=== PATIENT | female | born 2000 | race Caucasian/White ===

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

== ENCOUNTER 2020-01-24 14:18 | Emergency (ER) | payer MEDICAID, OTHER ==
[~2020-01-24] VITALS: Ht 167.6 cm; Wt 98.6 kg
[2020-01-24 14:24] VITALS: BP 134/86
[2020-01-24] MEDS ORDERED: CEPH-572 PO (15:20)
[2020-01-24] MEDS ORDERED: ALBU18HF2 INH (15:20)
== END 2020-01-24 15:55 | disposition home or self-care (01) ==
LOC: ER 14:19
DX: J02.0 Streptococcal pharyngitis (principal); Z76.0 Encounter for issue of repeat prescription; Z88.0 Allergy status to penicillin
CPT/HCPCS: 99283

== ENCOUNTER 2020-03-11 08:56 | Emergency (ER) | payer MEDICAID ==
[~2020-03-11] VITALS: Ht 167.6 cm; Wt 98.0 kg
[~2020-03-11 08:56] MED LIST: ALBU18HF2 INH
[2020-03-11 09:00] VITALS: BP 136/82
--- NOTE | 2020-03-11 09:08 | NUR ---
GERI LIM AT BEDSIDE.
[2020-03-11] MEDS ORDERED: azithromycin 250mg tablet PO ONE (09:35)
[2020-03-11] MEDS ORDERED: CefTRIAXone 1000mg IM Kit (w/lidocaine diluent) IM ONE (09:35)
[2020-03-11] MEDS ORDERED: DOXY100T56 PO (09:48)
[2020-03-11 09:58] LABS: URINE HCG NEGATIVE (NEG)
[2020-03-11 10:00] LABS: CLARITY,URINE SLIGHTLY CLOUDY (Clear); COLOR,URINE YELLOW (Yellow); GLUCOSE, URINE NEGATIVE (Neg); KETONES,URINE NEGATIVE (Neg); LEUKOCYTE ESTERASE ,URINE SMALL (Neg); NITRITES, URINE NEGATIVE (Neg); OCCULT BLOOD,URINE LARGE (Neg); PROTEIN,URINE NEGATIVE (Neg); UROBILINOGEN,URINE 0.2 E.U/dL (0.2-1.0)
[2020-03-11 10:04] LABS: UA COLLECTION TYPE CLN CATCH MIDSTREAM
[2020-03-11 10:06] LABS: BACTERIA,URINE FEW /HPF (Neg); MUCUS STRANDS FEW /LPF (Neg); SQUAMOUS EPITHELIAL CELL,UR MANY /LPF (FEW)
== END 2020-03-11 10:20 | disposition home or self-care (01) ==
LOC: ER 08:56
DX: N89.8 Other specified noninflammatory disorders of vagina (principal); R10.2 Pelvic and perineal pain; L98.8 Other specified disorders of the skin and subcutaneous tissue; Z72.51 High risk heterosexual behavior; Z88.0 Allergy status to penicillin
CPT/HCPCS: 36415; 81001; 81025; 87491; 87591; 96372; 99283; J0696

== ENCOUNTER 2020-03-16 13:05 | Emergency (ER) | payer MEDICAID ==
[~2020-03-16] VITALS: Ht 167.6 cm; Wt 0.9 kg
[~2020-03-16 13:05] MED LIST changes: +DOXY100T56 PO
[2020-03-16 13:19] VITALS: BP 134/74
[2020-03-16] MEDS ORDERED: azithromycin 250mg tablet PO ONE (15:25)
[2020-03-16] MEDS ORDERED: CefTRIAXone 250MG IM Kit w/LIDOcaine IM ONE (15:25)
[2020-03-16] MEDS ORDERED: ACYC-202 PO (15:31)
[2020-03-16] MEDS ORDERED: DOXY100C77 PO (15:31)
[2020-03-18 07:13] LABS: RPR Non Reactive (Non Reactive)
== END 2020-03-16 16:13 | disposition home or self-care (01) ==
LOC: ER 13:06
DX: B00.9 Herpesviral infection, unspecified (principal); N89.8 Other specified noninflammatory disorders of vagina; Z88.0 Allergy status to penicillin; Z79.899 Other long term (current) drug therapy
CPT/HCPCS: 36415; 86592; 87491; 99284

== ENCOUNTER 2020-03-17 22:41 | Emergency (ER) | payer MEDICAID ==
[~2020-03-17] VITALS: Ht 167.6 cm; Wt 100.0 kg
[~2020-03-17 22:41] MED LIST changes: +ACYC-202 PO; +DOXY100C77 PO
[2020-03-17 23:01] VITALS: BP 122/76
[2020-03-18] MEDS ORDERED: PRED10TA23 PO (00:40)
[2020-03-18] MEDS ORDERED: HYDR28CR14 TOP (00:40)
== END 2020-03-18 00:49 | disposition home or self-care (01) ==
LOC: ER 22:42
DX: L23.7 Allergic contact dermatitis due to plants, except food (principal); Z88.0 Allergy status to penicillin; Z79.899 Other long term (current) drug therapy
CPT/HCPCS: 99283

== ENCOUNTER 2020-03-21 19:55 | Emergency (ER) | payer MEDICAID ==
[~2020-03-21] VITALS: Ht 167.6 cm; Wt 99.0 kg
[~2020-03-21 19:55] MED LIST changes: -DOXY100T56 PO; +HYDR28CR14 TOP; +PRED10TA23 PO
[2020-03-21 19:58] VITALS: BP 152/90
[2020-03-21] MEDS ORDERED: DIPH25CA83 PO (20:52)
[2020-03-21] MEDS ORDERED: KEN0.1O TP (20:52)
[2020-03-21] MEDS ORDERED: FAMO-128 PO (20:52)
== END 2020-03-21 21:12 | disposition home or self-care (01) ==
LOC: ER 19:56
DX: L56.8 Other specified acute skin changes due to ultraviolet radiation (principal); Z88.0 Allergy status to penicillin; Z79.899 Other long term (current) drug therapy
CPT/HCPCS: 99284

== ENCOUNTER 2020-05-09 06:56 | Emergency (ER) | payer MEDICAID ==
[~2020-05-09] VITALS: Ht 167.6 cm; Wt 97.0 kg
[~2020-05-09 06:56] MED LIST changes: -ACYC-202 PO; +DIPH25CA83 PO; -DOXY100C77 PO; +FAMO-128 PO; -PRED10TA23 PO
[2020-05-09 07:57] VITALS: BP 135/77
== END 2020-05-09 07:58 | disposition home or self-care (01) ==
LOC: ER 06:56
DX: J02.0 Streptococcal pharyngitis (principal); Z88.0 Allergy status to penicillin; Z79.899 Other long term (current) drug therapy
CPT/HCPCS: 87081; 87880; 99283

== ENCOUNTER 2020-07-05 20:52 | Emergency (ER) | payer MEDICAID ==
[~2020-07-05] VITALS: Ht 167.6 cm; Wt 100.0 kg
[2020-07-05] MEDS ORDERED: AZIT250T81 PO (21:42)
[2020-07-05 21:49] VITALS: BP 122/69
== END 2020-07-05 21:50 | disposition home or self-care (01) ==
LOC: ER 20:52
DX: J03.80 Acute tonsillitis due to other specified organisms (principal); Z88.1 Allergy status to other antibiotic agents; Z79.2 Long term (current) use of antibiotics; Z79.899 Other long term (current) drug therapy
CPT/HCPCS: 99283

== ENCOUNTER 2020-10-24 01:08 | Emergency (ER) | payer MEDICAID ==
[~2020-10-24] VITALS: Ht 167.6 cm; Wt 83.7 kg
[2020-10-24 01:18] VITALS: BP 122/77
[2020-10-24] MEDS ORDERED: PRED20TA PO (01:22)
[2020-10-24] MEDS ORDERED: dexamethasone 4mg tablet PO ONE (01:25)
== END 2020-10-24 01:50 | disposition home or self-care (01) ==
LOC: ER 01:09
DX: J02.9 Acute pharyngitis, unspecified (principal); Z88.0 Allergy status to penicillin; Z88.1 Allergy status to other antibiotic agents; Z79.899 Other long term (current) drug therapy
CPT/HCPCS: 99283

== ENCOUNTER 2021-02-24 08:21 | Emergency (ER) | payer MEDICAID ==
[~2021-02-24] VITALS: Ht 167.6 cm; Wt 90.9 kg
[2021-02-24 08:26] VITALS: BP 124/77
[2021-02-24] MEDS ORDERED: ipratropium/albuterol 3ml nebule NEB ONE (09:20)
[2021-02-24] MEDS ORDERED: cetirizine 10mg tablet PO SCH (09:20)
[2021-02-24] MEDS ORDERED: ALBU18HF2 INH (09:22)
[2021-02-24] MEDS ORDERED: INHA1INH2 INH (09:22)
== END 2021-02-24 09:46 | disposition home or self-care (01) ==
LOC: ER 08:22
DX: J98.01 Acute bronchospasm (principal); Z72.89 Other problems related to lifestyle; Z88.0 Allergy status to penicillin; Z88.1 Allergy status to other antibiotic agents; Z79.899 Other long term (current) drug therapy
CPT/HCPCS: 94640; 94760; 99283

== ENCOUNTER 2021-09-02 20:47 | Emergency (ER) | payer MEDICAID ==
[~2021-09-02] VITALS: Ht 167.6 cm; Wt 104.5 kg
[~2021-09-02 20:47] MED LIST changes: +INHA1INH2 INH
[2021-09-02 20:58] VITALS: BP 137/97
== END 2021-09-02 23:57 | disposition home or self-care (01) ==
LOC: ER 20:47
DX: B34.9 Viral infection, unspecified (principal); Z20.822 Contact with and (suspected) exposure to COVID-19; J45.909 Unspecified asthma, uncomplicated; Z88.0 Allergy status to penicillin; Z79.899 Other long term (current) drug therapy; Z88.1 Allergy status to other antibiotic agents
CPT/HCPCS: 87081; 87635; 87880; 99283; C9803

== ENCOUNTER 2022-01-09 21:49 | Emergency (ER) | payer MEDICAID ==
[~2022-01-09] VITALS: Ht 167.6 cm; Wt 102.3 kg
--- NOTE | 2022-01-09 22:34 | NUR ---
Pt presents to the ed with c/o flu like symptoms for the past three days; states she's been taking tylenol without relief. denies exposure to others with covid.Pt denies other related concerns.
[2022-01-09] MEDS ORDERED: normal saline 1000ML IV soln IVB ONE (22:35)
[2022-01-09 22:54] LABS: BASOPHILS % (AUTO) 0.2 % (0-1); EOSINOPHILS % (AUTO) 0.2 % (0-6); HEMATOCRIT 37.8 % (35.0-45.0); HEMOGLOBIN 12.5 g/dl (12.0-16.0); LYMPHOCYTES # (AUTO) 1.4 X10'3 (1.1-4.8); LYMPHOCYTES % (AUTO) 11.5 % (21-51); MEAN CORPUSCULAR HEMOGLOBIN 24.9 PG (27.0-31.0); MEAN CORPUSCULAR HGB CONC 33.1 g/dL (33.0-36.5); MEAN CORPUSCULAR VOLUME 75.5 FL (78-98); MONOCYTES # (AUTO) 0.9 X10'3 (0-0.9); MONOCYTES % (AUTO) 7.5 % (2-12); NEUTROPHILS # (AUTO) 9.6 X10'3 (1.8-7.7); NEUTROPHILS % (AUTO) 80.6 % (42-75); PLATELET COUNT 319 X10'3 (140-440); RED BLOOD COUNT 5.01 X10'6 (4.20-5.60); RED CELL DISTRIBUTION WIDTH 15.2 % (11.5-14.5); WHITE BLOOD COUNT 11.9 X10'3 (4.5-11.0)
[2022-01-09 23:08] LABS: ANION GAP 14 (8-16); BLOOD UREA NITROGEN 6 MG/DL (7-18); CHLORIDE 103 MMOL/L (99-107); CREATININE 0.64 MG/DL (0.40-0.90); GLUCOSE 121 MG/DL (70-104); SODIUM 140 MMOL/L (135-145); TOTAL CARBON DIOXIDE 22.7 MMOL/L (24-32)
[2022-01-09 23:09] LABS: ALANINE AMINOTRANSFERASE 14 U/L (12-78); ALBUMIN 3.6 G/DL (3.4-5.0); ALBUMIN/GLOBULIN RATIO 0.8 (1.1-1.5); ALKALINE PHOSPHATASE 86 IU/L (46-116); ASPARTATE AMINO TRANSFERASE 11 U/L (10-37); BILIRUBIN,TOTAL 0.3 MG/DL (0.1-1.0); BUN/CREATININE RATIO 9.4 (6.6-38.0); CALCIUM 8.9 MG/DL (8.5-10.1); TOTAL PROTEIN 8.3 G/DL (6.4-8.2); eGFR > 90 ML/MIN
[2022-01-09 23:10] LABS: POTASSIUM 3.7 MMOL/L (3.5-5.1)
[2022-01-09 23:41] LABS: MONOTEST NEGATIVE (Neg)
[2022-01-09] MEDS ORDERED: acetaminophen 325mg tablet PO ONE (23:55)
[2022-01-10] MEDS ORDERED: AZIT500T9 PO (00:09)
[2022-01-10] MEDS ORDERED: predniSONE 20 mg tablet PO ONE (00:10)
[2022-01-10] MEDS ORDERED: azithromycin 250mg tablet PO ONE (00:20)
[2022-01-10 00:42] VITALS: BP 128/76
== END 2022-01-10 00:46 | disposition home or self-care (01) ==
LOC: ER 21:51
DX: J02.0 Streptococcal pharyngitis (principal); J45.909 Unspecified asthma, uncomplicated; Z88.0 Allergy status to penicillin; Z88.1 Allergy status to other antibiotic agents; Z20.822 Contact with and (suspected) exposure to COVID-19
CPT/HCPCS: 36415; 71045; 80053; 85025; 86308; 87635; 87880; 99284; C9803; J7030; J7512; 96360

== ENCOUNTER 2023-08-18 22:24 | Emergency (ER) | payer MEDICAID ==
[~2023-08-18] VITALS: Ht 167.6 cm; Wt 111.4 kg
[~2023-08-18 22:24] MED LIST changes: +AZIT500T9 PO
[2023-08-18 23:15] LABS: MEAN CORPUSCULAR VOLUME 77.9 FL (78-98); PLATELET COUNT 369 X10'3 (140-440)
[2023-08-18 23:16] LABS: BASOPHILS % (AUTO) 0.1 % (0-1); EOSINOPHILS # (AUTO) 0.1 X10'3 (0-0.9); EOSINOPHILS % (AUTO) 1.4 % (0-6); HEMATOCRIT 38.7 % (35.0-45.0); HEMOGLOBIN 12.3 g/dl (12.0-16.0); LYMPHOCYTES # (AUTO) 1.9 X10'3 (1.1-4.8); LYMPHOCYTES % (AUTO) 23.5 % (21-51); MEAN CORPUSCULAR HEMOGLOBIN 24.9 PG (27.0-31.0); MEAN CORPUSCULAR HGB CONC 31.9 g/dL (33.0-36.5); MONOCYTES # (AUTO) 0.7 X10'3 (0-0.9); MONOCYTES % (AUTO) 8.2 % (2-12); NEUTROPHILS # (AUTO) 5.5 X10'3 (1.8-7.7); NEUTROPHILS % (AUTO) 66.8 % (42-75); RED BLOOD COUNT 4.97 X10'6 (4.20-5.60); RED CELL DISTRIBUTION WIDTH 15.8 % (11.5-14.5); WHITE BLOOD COUNT 8.3 X10'3 (4.5-11.0)
[2023-08-18 23:28] LABS: ALANINE AMINOTRANSFERASE 45 U/L (12-78); ALBUMIN 3.4 G/DL (3.4-5.0); ALBUMIN/GLOBULIN RATIO 0.8 (1.1-1.5); ALKALINE PHOSPHATASE 105 IU/L (46-116); ANION GAP 8 (8-16); ASPARTATE AMINO TRANSFERASE 16 U/L (10-37); BILIRUBIN,TOTAL 0.3 MG/DL (0.1-1.0); BLOOD UREA NITROGEN 6 MG/DL (7-18); BUN/CREATININE RATIO 8.7 (10.0-20.0); CALCIUM 8.9 MG/DL (8.5-10.1); CHLORIDE 103 MMOL/L (99-107); CREATININE 0.69 MG/DL (0.40-0.90); GLUCOSE 148 MG/DL (70-104); POTASSIUM 3.6 MMOL/L (3.5-5.1); SODIUM 138 MMOL/L (135-145); TOTAL CARBON DIOXIDE 26.9 MMOL/L (24-32); TOTAL PROTEIN 7.7 G/DL (6.4-8.2); eCRCL 120 ML/MIN; eGFR > 90 ML/MIN
--- NOTE | 2023-08-18 23:32 | NUR ---
THIS RN AGREES W REMY'S ASSESSMENTS.
[2023-08-18 23:36] LABS: PRO BRAIN NATRIURETIC PEPTIDE 141 PG/ML (0-125)
[2023-08-19] MEDS ORDERED: FAMO-128 PO (01:10)
[2023-08-19] MEDS ORDERED: famotidine 20mg tablet PO ONE (01:10)
[2023-08-19 01:19] VITALS: BP 117/76; PULSE 92; RESP 16; TEMP 98; O2SAT 100
== END 2023-08-19 01:20 | disposition home or self-care (01) ==
LOC: ER 22:26
DX: R06.02 Shortness of breath (principal); R07.9 Chest pain, unspecified; J45.909 Unspecified asthma, uncomplicated; Z88.0 Allergy status to penicillin; Z88.1 Allergy status to other antibiotic agents; Z79.899 Other long term (current) drug therapy
CPT/HCPCS: 36415; 71045; 80053; 83880; 84484; 85025; 93005; 99285

== ENCOUNTER 2024-01-06 12:27 | Emergency (ER) | payer MEDICAID ==
[~2024-01-06] VITALS: Ht 167.6 cm; Wt 108.1 kg
[2024-01-06] MEDS ORDERED: ketorolac trometh inj. 60 MG/2 ML VIAL IM ONE (13:30)
[2024-01-06 13:53] LABS: STREP A SCREEN POSITIVE (Neg)
[2024-01-06] MEDS ORDERED: CLIN-233 PO (14:07)
[2024-01-06] MEDS ORDERED: LIDO15SO9 PO (14:07)
[2024-01-06] MEDS: ketorolac tromethamine 15mg/ml inj. IM ONE (14:38)
[2024-01-06] MEDS: dexamethasone sod phosphate 10mg/ml inj IM STA (14:38)
[2024-01-06 14:47] VITALS: BP 112/73; PULSE 72; RESP 18; TEMP 98.3; O2SAT 100
== END 2024-01-06 14:51 | disposition home or self-care (01) ==
LOC: ER 12:27
DX: J02.0 Streptococcal pharyngitis (principal); J45.909 Unspecified asthma, uncomplicated; Z88.0 Allergy status to penicillin; Z88.1 Allergy status to other antibiotic agents; Z79.2 Long term (current) use of antibiotics; Z79.899 Other long term (current) drug therapy
CPT/HCPCS: 87880; 96372; 99284; J1100; J1885

== ENCOUNTER 2024-03-08 10:57 | Emergency (ER) | payer MEDICAID ==
[~2024-03-08] VITALS: Ht 167.6 cm; Wt 107.7 kg
[~2024-03-08 10:57] MED LIST changes: +LIDO15SO9 PO
[2024-03-08 11:13] VITALS: BP 131/79; PULSE 78; RESP 16; TEMP 98; O2SAT 98
== END 2024-03-08 16:53 | disposition left against medical advice (07) ==
LOC: ER 10:57
DX: R21 Rash and other nonspecific skin eruption (principal); Z53.21 Procedure and treatment not carried out due to patient leaving prior to being seen by health care provider

== ENCOUNTER → 2024-03-26 | Outpatient (CLI) | payer MEDICAID ==
[~2024-03-26] VITALS: Ht 198.1 cm; Wt 108.0 kg
[2024-03-26 07:52] VITALS: PULSE 91; RESP 18; O2SAT 97
[2024-03-26] MEDS: albuterol 2.5 MG/3 ML nebule NEB PRN (08:26)
== END | disposition home or self-care (01) ==
LOC: RT 07:21
PROVIDERS: ATTEND Physician Assistant
DX: J45.20 Mild intermittent asthma, uncomplicated (principal)
CPT/HCPCS: 94060; 94760

== ENCOUNTER 2024-05-03 04:43 | Emergency (ER) | payer MEDICAID ==
[~2024-05-03] VITALS: Ht 167.6 cm; Wt 104.1 kg
[2024-05-03 04:52] VITALS: BP 122/82; PULSE 84; RESP 16; TEMP 98.7; O2SAT 98
[2024-05-03] MEDS ORDERED: AZIT-164 PO (05:30)
[2024-05-03] MEDS: azithromycin 250mg tablet PO ONE (05:35)
== END 2024-05-03 05:43 | disposition home or self-care (01) ==
LOC: ER 04:43
DX: H66.91 Otitis media, unspecified, right ear (principal); J45.909 Unspecified asthma, uncomplicated; Z72.89 Other problems related to lifestyle; Z79.899 Other long term (current) drug therapy; Z88.1 Allergy status to other antibiotic agents; Z88.0 Allergy status to penicillin
CPT/HCPCS: 99283

== ENCOUNTER → 2024-07-16 | Emergency (ER) | payer MEDICAID ==
[~2024-07-16] VITALS: Ht 172.7 cm; Wt 102.3 kg
[~2024-07-16] MED LIST changes: +CLIN75SO7 PO
[2024-07-16 04:56] VITALS: BP 117/75; PULSE 78; RESP 18; TEMP 97.8; O2SAT 97
== END | disposition home or self-care (01) ==
LOC: ER 04:31
DX: L73.8 Other specified follicular disorders (principal); J45.909 Unspecified asthma, uncomplicated; Z88.0 Allergy status to penicillin; Z88.1 Allergy status to other antibiotic agents; Z79.899 Other long term (current) drug therapy; Z79.2 Long term (current) use of antibiotics; Z79.51 Long term (current) use of inhaled steroids; Z72.89 Other problems related to lifestyle
CPT/HCPCS: 99283

== ENCOUNTER 2024-08-17 05:28 | Emergency (ER) | payer MEDICAID ==
[~2024-08-17] VITALS: Ht 167.6 cm; Wt 102.3 kg
[2024-08-17 05:31] VITALS: TEMP 98.8
[2024-08-17] MEDS ORDERED: OMEP40CA21 PO (06:18)
[2024-08-17 06:41] VITALS: BP 117/62; PULSE 55; O2SAT 98
[2024-08-17 06:42] VITALS: RESP 18
== END 2024-08-17 07:11 | disposition home or self-care (01) ==
LOC: ER 05:29
DX: R06.00 Dyspnea, unspecified (principal); R07.89 Other chest pain; J45.909 Unspecified asthma, uncomplicated; Z88.0 Allergy status to penicillin; Z88.1 Allergy status to other antibiotic agents; Z79.899 Other long term (current) drug therapy; Z79.2 Long term (current) use of antibiotics
CPT/HCPCS: 93005; 99283

== ENCOUNTER 2024-09-19 04:07 | Emergency (ER) | payer MEDICAID ==
[~2024-09-19] VITALS: Ht 167.6 cm; Wt 105.2 kg
[2024-09-19] MEDS: oxyCODONE IR 5mg (immed. release) tablet PO ONE (05:01)
[2024-09-19] MEDS: HYDROcodone/acetaminophen 5mg/325mg tablet PO ONE (09:04)
[2024-09-19 09:13] VITALS: BP 121/63; PULSE 66; RESP 16; TEMP 98; O2SAT 98
== END 2024-09-19 09:14 | disposition home or self-care (01) ==
LOC: ER 04:07
DX: O03.9 Complete or unspecified spontaneous abortion without complication (principal); O99.511 Diseases of the respiratory system complicating pregnancy, first trimester; J45.909 Unspecified asthma, uncomplicated; Z3A.01 Less than 8 weeks gestation of pregnancy; Z88.0 Allergy status to penicillin; Z88.1 Allergy status to other antibiotic agents; Z88.8 Allergy status to other drugs, medicaments and biological substances
CPT/HCPCS: 36415; 76801; 84702; 86900; 86901; 99284

== ENCOUNTER 2024-10-19 18:22 | Emergency (ER) | payer MEDICAID ==
[~2024-10-19] VITALS: Ht 167.6 cm; Wt 101.4 kg
[2024-10-19 18:28] VITALS: TEMP 100.2
[2024-10-19 19:24] LABS: BASOPHILS % (AUTO) 0.2 % (0-1); EOSINOPHILS % (AUTO) 0.2 % (0-6); HEMATOCRIT 38.3 % (35.0-45.0); HEMOGLOBIN 11.9 g/dl (12.0-16.0); LYMPHOCYTES # (AUTO) 0.8 X10'3 (1.1-4.8); LYMPHOCYTES % (AUTO) 8.8 % (21-51); MEAN CORPUSCULAR HEMOGLOBIN 25.2 PG (27.0-31.0); MEAN CORPUSCULAR VOLUME 81.1 FL (78-98); MEAN PLATELET VOLUME 7.9 FL (7.4-10.4); MONOCYTES # (AUTO) 0.6 X10'3 (0-0.9); MONOCYTES % (AUTO) 7.3 % (2-12); NEUTROPHILS # (AUTO) 7.4 X10'3 (1.8-7.7); NEUTROPHILS % (AUTO) 83.5 % (42-75); PLATELET COUNT 367 X10'3 (140-440); RED BLOOD COUNT 4.72 X10'6 (4.20-5.60); RED CELL DISTRIBUTION WIDTH 15.2 % (11.5-14.5); WHITE BLOOD COUNT 8.9 X10'3 (4.5-11.0)
[2024-10-19] MEDS ORDERED: gentamicin inj 400 MG in normal saline 100ml IV soln 100 ML IV STA (19:24)
[2024-10-19] MEDS: acetaminophen 325mg tablet PO ONE (19:42)
[2024-10-19] MEDS: normal saline 1000ml 1,000 ML IV ONE (19:42)
[2024-10-19] MEDS: CefTRIAXone/D5W-Rocephin 1gm 50 ML IV ONE (19:42)
[2024-10-19] MEDS: clindamycin-Cleocin 900mg/D5W 50 ML IV ONE (19:43)
[2024-10-19 19:48] LABS: ALANINE AMINOTRANSFERASE 17 U/L (12-78); ALBUMIN 3.7 G/DL (3.4-5.0); ALBUMIN/GLOBULIN RATIO 0.8 (1.1-1.5); ALKALINE PHOSPHATASE 79 IU/L (46-116); ANION GAP 8 (8-16); ASPARTATE AMINO TRANSFERASE 6 U/L (10-37); BILIRUBIN,TOTAL 0.4 MG/DL (0.1-1.0); BLOOD UREA NITROGEN 7 MG/DL (7-18); BUN/CREATININE RATIO 8.5 (10.0-20.0); CALCIUM 9.1 MG/DL (8.5-10.1); CHLORIDE 105 MMOL/L (99-107); CREATININE 0.82 MG/DL (0.40-0.90); GLUCOSE 99 MG/DL (70-104); MAGNESIUM 2.1 MG/DL (1.5-2.4); POTASSIUM 3.9 MMOL/L (3.5-5.1); SODIUM 139 MMOL/L (135-145); TOTAL CARBON DIOXIDE 25.6 MMOL/L (24-32); TOTAL PROTEIN 8.1 G/DL (6.4-8.2); eCRCL 99 ML/MIN; eGFR > 90 ML/MIN
[2024-10-19 19:55] LABS: BETA HCG,QUANTITATIVE 5 mIU/ml
[2024-10-19] MEDS: NORMAL SALINE IV STA (20:10)
[2024-10-19] MEDS: GENTAMICIN IV STA (20:10)
[2024-10-19 21:09] LABS: BILIRUBIN,URINE NEGATIVE (Neg); CLARITY,URINE CLEAR (Clear); COLOR,URINE YELLOW (Yellow); GLUCOSE, URINE NEGATIVE (Neg); KETONES,URINE NEGATIVE (Neg); LEUKOCYTE ESTERASE ,URINE NEGATIVE (Neg); NITRITES, URINE NEGATIVE (Neg); OCCULT BLOOD,URINE LARGE (Neg); PROTEIN,URINE NEGATIVE (Neg); UROBILINOGEN,URINE 0.2 E.U/dL (0.2-1.0)
[2024-10-19 21:10] LABS: URINE HCG NEGATIVE (NEG)
[2024-10-19 21:14] LABS: UA COLLECTION TYPE CLN CATCH MIDSTREAM
[2024-10-19 21:15] LABS: BACTERIA,URINE FEW /HPF (Neg); RBC,URINE 50-100 /HPF (0-2); SQUAMOUS EPITHELIAL CELL,UR FEW /LPF (FEW); WBC,URINE 0-4 /HPF (0-4)
[2024-10-20 01:00] VITALS: BP 116/74; PULSE 71; RESP 18; O2SAT 98
== END 2024-10-20 01:04 | disposition hospice, inpatient (51) ==
LOC: ER 18:24
DX: O04.6 Delayed or excessive hemorrhage following (induced) termination of pregnancy (principal); R50.9 Fever, unspecified; J45.909 Unspecified asthma, uncomplicated; Z88.0 Allergy status to penicillin; Z88.1 Allergy status to other antibiotic agents; Z20.822 Contact with and (suspected) exposure to COVID-19
CPT/HCPCS: 36415; 76856; 80053; 81001; 81025; 83605; 83735; 84145; 84702; 85025; 87040; 87502; 87503; 87811; 93976; 96365; 96368; 99291; J0696; J1580; J3490; J7030; 99285

== ENCOUNTER 2025-01-01 08:34 | Emergency (ER) | payer MEDICAID ==
[~2025-01-01] VITALS: Ht 167.6 cm; Wt 97.1 kg
[2025-01-01 08:37] VITALS: BP 135/82; PULSE 81; RESP 16; TEMP 98.2; O2SAT 98
[2025-01-01 09:20] LABS: STREP A SCREEN NEGATIVE (Neg)
[2025-01-01] MEDS ORDERED: CLIN-214 PO (09:39)
[2025-01-01] MEDS ORDERED: AZIT-164 PO (09:56)
== END 2025-01-01 09:57 | disposition home or self-care (01) ==
LOC: ER 08:35
DX: J02.8 Acute pharyngitis due to other specified organisms (principal); J45.909 Unspecified asthma, uncomplicated; Z88.0 Allergy status to penicillin; Z88.1 Allergy status to other antibiotic agents; Z79.899 Other long term (current) drug therapy; Z72.89 Other problems related to lifestyle
CPT/HCPCS: 87081; 87880; 99283